=== PATIENT | female | born 1985 | race American Indian/Alaskan Native ===

== ENCOUNTER 2021-06-09 09:52 | Outpatient (CLI) | payer OTHER | END 2021-06-09 10:44 | disposition home or self-care (01) | LOC: NST 09:52 | PROVIDERS: ATTEND Obstetrics & Gynecology Maternal & Fetal Medicine | DX: O30.093 Twin pregnancy, unable to determine number of placenta and number of amniotic sacs, third trimester (principal); Z3A.31 31 weeks gestation of pregnancy ==

== ENCOUNTER 2021-06-23 13:07 | Outpatient (CLI) | payer OTHER | END 2021-06-23 13:48 | disposition home or self-care (01) | LOC: NST 13:07 | PROVIDERS: ATTEND Obstetrics & Gynecology Maternal & Fetal Medicine | DX: Z34.83 Encounter for supervision of other normal pregnancy, third trimester (principal) ==

== ENCOUNTER 2021-07-07 10:30 | Outpatient (CLI) | payer OTHER | END 2021-07-07 11:25 | disposition home or self-care (01) | LOC: NST 10:30 | PROVIDERS: ATTEND Obstetrics & Gynecology Maternal & Fetal Medicine | DX: Z34.83 Encounter for supervision of other normal pregnancy, third trimester (principal) ==

== ENCOUNTER 2021-07-14 04:39 | Inpatient (IN) | payer OTHER ==
[~2021-07-14] VITALS: Ht 162.6 cm; Wt 2331.0 kg
[2021-07-14] MEDS ORDERED: PRENATAL CAPLE1 EAC1 PO (07:55)
[2021-07-14] MEDS ORDERED: IRON325 MG PO (07:55)
[2021-07-15] MEDS ORDERED: INTEGRA F CAPS1 EAC1 (08:48)
== END 2021-07-16 14:34 | disposition home or self-care (01) | DRG 807 ==
LOC: SURG-SUITE 04:39 → LDR 04:39 → SURG-SUITE 13:34
PROVIDERS: ADMIT Obstetrics & Gynecology Maternal & Fetal Medicine; ATTEND Obstetrics & Gynecology Maternal & Fetal Medicine
PROC: 10E0XZZ Delivery of Products of Conception, External Approach (ICD-10-PCS; principal; 2021-07-14)
PROC: 4A1HXFZ Monitoring of Products of Conception, Cardiac Rhythm, External Approach (ICD-10-PCS; 2021-07-14)
DX: O60.14X0 Preterm labor third trimester with preterm delivery third trimester, not applicable or unspecified (principal); Z37.0 Single live birth; Z3A.36 36 weeks gestation of pregnancy